=== PATIENT | male | born 1960 | race Caucasian/White ===

== ENCOUNTER 2016-07-26 18:14 | Emergency (ER) | payer MEDICAID ==
[2016-07-26 18:42] VITALS: BP 157/88
[2016-07-26] MEDS ORDERED: DIPH/PERTUSS(ACELL)/TETANUS VAC/PF 0.5 ML SYR (>=10YO) IM ONE (18:44)
[2016-07-26] MEDS ORDERED: MORPHINE SULFATE 10 MG/ML INJ IV ONE (18:44)
[2016-07-26] MEDS ORDERED: LIDOCAINE 1%/EPINEPHRINE INJ 20 ML VIAL INJ ONE (18:44)
--- NOTE | 2016-07-26 18:45 | ER Document Report ---
ED Fall - General Chief Complaint: Fall Injury Stated Complaint: HEAD LACERATION Time seen by provider: 18:45 Mode of Arrival: Stretcher Information source: Patient - HPI Patient complains to provider of: fall, head injury Occurred: Just prior to arrival Where: Home Context: Tripped Associated symptoms: None Location of injury/pain: Head Quality of pain: Achy Severity: Moderate Pain Level: 3 Notes: Patient is a 56-year-old male who presents to the emergency room status post trip and fall with head injury, states he was on his back patio when he tripped over his cat, falling backwards and hitting his head on a steel patio table, he denies any loss of consciousness, denies injury or pain elsewhere, last tetanus shot is unknown - Related data Allergies/Adverse Reactions: No Known Allergies Allergy (Unverified 07/26/16 18:48) Past Medical History - General Information source: Patient - Social History Smoking Status: Current Every Day Smoker Family History: Reviewed & Not Pertinent Review of Systems - Review of Systems Constitutional: No symptoms reported EENT: No symptoms reported Cardiovascular: No symptoms reported Respiratory: No symptoms reported Gastrointestinal: No symptoms reported Genitourinary: No symptoms reported Male Genitourinary: No symptoms reported Musculoskeletal: No symptoms reported Skin: See HPI Hematologic/Lymphatic: No symptoms reported Neurological/Psychological: No symptoms reported -: Yes All other systems reviewed and negative Physical Exam - Vital signs Vitals: Temp Pulse Resp BP Pulse Ox 98.4 F 88 20 157/88 H 99 07/26/16 18:39 07/26/16 18:39 07/26/16 18:39 07/26/16 18:39 07/26/16 18:39 Interpretation: Normal - General General appearance: Appears well, Alert - HEENT Head: Normocephalic, Other - Patient with a 2 cm linear laceration to posterior scalp, with moderate bleeding upon bandage removal Eyes: Normal Conjunctiva: Normal Extraocular movements intact: Yes Eyelashes: Normal Pupils: PERRL - Respiratory Respiratory status: No respiratory distress Chest status: Nontender Breath sounds: Normal Chest palpation: Normal - Cardiovascular Rhythm: Regular Heart sounds: Normal auscultation Murmur: No - Abdominal Inspection: Normal Distension: No distension Bowel sounds: Normal Tenderness: Nontender Organomegaly: No organomegaly - Back Back: Normal, Nontender - Extremities General upper extremity: Normal inspection, Nontender, Normal color, Normal ROM , Normal temperature General lower extremity: Normal inspection, Nontender, Normal color, Normal ROM , Normal temperature, Normal weight bearing. No: Kenia's sign - Neurological Neuro grossly intact: Yes Cognition: Normal Orientation: AAOx4 Ramin Coma Scale Eye Opening: Spontaneous Ramin Coma Scale Verbal: Oriented Ramin Coma Scale Motor: Obeys Commands [place] Coma Scale Total: 15 Speech: Normal Motor strength normal: LUE, RUE, LLE, RLE Sensory: Normal - Psychological Associated symptoms: Normal affect, Normal mood - Skin Skin Temperature: Warm Skin Moisture: Dry Skin Color: Normal Course - Re-evaluation Re-evalutation: 07/27/16 03:12 Wound was repaired using naima, patient was sent for CT scan of the head which shows no intracranial abnormalities, is given wound care instructions and instructions for follow-up, advised to return if symptoms worsen, patient acknowledges understanding and agreement with this plan - Vital Signs Vital signs: Temp Pulse Resp BP Pulse Ox 98.4 F 88 18 157/88 H 99 07/26/16 18:39 07/26/16 18:39 07/26/16 18:39 07/26/16 18:39 07/26/16 18:39 - Diagnostic Test Radiology reviewed: Image reviewed, Reports reviewed Procedures - Laceration/Wound Repair Posterior Head Time completed: 20:35 Wound length (cm): 2 Wound's Depth, Shape: Linear Laceration pre-procedure: Sterile PPE donned, Sterile drapes applied, Shur- Clens applied Anesthetic type: 1% Lidocaine w/epi Volume Anesthetic (mLs): 8 Wound explored: Clean Irrigated w/ Saline (mLs): 1,000 Wound Repaired With: Naima Number of Sutures: 5 Post-procedure wound care: Sterile dressing applied Post-procedure NV exam normal: Yes Complications: No Adult Head Front/Back picture: 1 - 2 cm laceration Discharge - Discharge Clinical Impression: Head injury Qualifiers: Encounter type: initial encounter Qualified Code(s): S09.90XA - Unspecified injury of head, initial encounter Scalp laceration Qualifiers: Encounter type: initial encounter Qualified Code(s): S01.01XA - Laceration without foreign body of scalp, initial encounter Condition: Stable Disposition: HOME, SELF-CARE Instructions: Antibiotic Ointment Protection (OM), Laceration Care (OM), Tetanus Immunization Given (OM), Soap Cleansing (OM), Head Injury Precautions (OM), Care of Stapled Wounds (OM) Additional Instructions: Follow up with your primary care provider in one to 2 days. Return to the emergency room immediately if symptoms worsen or any additional concerns. Follow up with your primary care provider in 2-3 days for wound check. Keep wound clean and covered with antibiotic ointment and a clean dressing. Gently rinse with warm water and soap twice daily. Naima to be removed in 7-10 days. Return to the emergency room immediately if symptoms worsen or any additional concerns.
== END 2016-07-26 22:20 | disposition home or self-care (01) ==
LOC: ER 18:14
PROC: 0HQ0XZZ Repair Scalp Skin, External Approach (ICD-10-PCS; principal; 2016-07-26)
DX: S01.01XA Laceration without foreign body of scalp, initial encounter (principal); F17.200 Nicotine dependence, unspecified, uncomplicated; W01.190A Fall on same level from slipping, tripping and stumbling with subsequent striking against furniture, initial encounter; Y92.007 Garden or yard of unspecified non-institutional (private) residence as the place of occurrence of the external cause; Z23 Encounter for immunization
CPT/HCPCS: 99284; 90471; 96374; 70450; 90715; 12001; J3490; J2270